=== PATIENT | female | born 1940 | race African-American/Black ===

== ENCOUNTER → 2016-08-16 | Outpatient (CLI) | payer BC ==
--- NOTE | 2016-08-16 13:19 | KCIC ---
Complete cervical spine Indication: Reason: RIGHT ARM WEAKNESS AND ACHING X 2 WEEKS, NO KNOWN INJURY / Spl. Instructions: / History: Reason For Study Findings: There is straightening of the cervical lordosis. Vertebral body heights are maintained. There is disc height loss greatest at C5-6 and C6-7. No perching of the facets. There is narrowing of the right foramina at C6-C7 from uncovertebral hypertrophy. The odontoid is intact. Impression: - Degenerative disc disease greatest at C5-6 and C6-7. There is right foraminal narrowing at C6-7. Correlate for C7 radiculopathy symptoms. Electronically signed by: Saul Duque (August 16, 2016 13:18:28)
== END | disposition home or self-care (01) ==
LOC: KCIC 12:54
PROVIDERS: ATTEND Family Medicine
DX: M50.30 Other cervical disc degeneration, unspecified cervical region (principal)
CPT/HCPCS: 72050

== ENCOUNTER → 2016-08-30 | Outpatient (CLI) | payer BC ==
--- NOTE | 2016-08-30 11:38 | KCIC ---
Three views right shoulder Indication: Right shoulder pain Findings: No fracture is identified. The acromioclavicular and glenohumeral joints are maintained. There is no evidence for dislocation. Visualized right lung apex is clear. Soft tissues are within normal limits. Impression: Negative for fracture or dislocation. Electronically signed by: Saul Duque MD (08/30/2016 11:35 AM)
== END | disposition home or self-care (01) ==
LOC: KCIC 11:07
PROVIDERS: ATTEND Family Medicine
DX: M25.511 Pain in right shoulder (principal)
CPT/HCPCS: 73030

== ENCOUNTER → 2017-09-30 | Outpatient (CLI) | payer BC ==
[2017-09-30] MEDS: IOHEXOL 300 MG/ML 100ML VIAL. IV (09:07)
== END | disposition home or self-care (01) ==
LOC: CT 08:39
DX: R91.8 Other nonspecific abnormal finding of lung field (principal); R59.0 Localized enlarged lymph nodes
CPT/HCPCS: 71260; Q9967

== ENCOUNTER 2017-10-24 08:09 | Outpatient (CLI) | payer BC ==
[2017-10-24 08:27] LABS: ADD MAN DIFF? NO
[2017-10-24 08:33] LABS: BASO % 0 % (0-3); EOS # 0.1 x10^3/uL (0.0-0.7); EOS % 1 % (0-3); HEMATOCRIT 34.8 % (36.0-47.0); HEMOGLOBIN 11.5 g/dL (12.0-15.5); LYMPH # 1.6 x10^3/uL (1.0-4.8); LYMPH % 17 % (24-48); MEAN CORPUSCULAR HEMOGLOBIN 28 pg (25-35); MEAN CORPUSCULAR HGB CONC 33 g/dL (31-37); MEAN CORPUSCULAR VOLUME 85 fL (79-100); MONO # 0.9 x10^3/uL (0.0-1.1); MONO % 10 % (0-9); NEUT # 6.5 x10^3uL (1.8-7.7); NEUT % 72 % (31-73); PLATELET COUNT 495 x10^3/uL (140-400); RED CELL DISTRIBUTION WIDTH 16.1 % (11.5-14.5); WHITE BLOOD COUNT 9.1 x10^3/uL (4.0-11.0)
[2017-10-24 08:39] LABS: INR 1.1 (0.8-1.1); PARTIAL THROMBOPLASTIN TIME 32 SEC (24-38)
[2017-10-24] MEDS ORDERED: LIDOCAINE WITH 8.4% SOD BICARB 3 ML DISP.SYRIN. ×2 (09:18→09:54)
[2017-10-24] MEDS ORDERED: MIDAZOLAM HCL/PF 2 MG/2 ML VIAL. (09:25)
[2017-10-24] MEDS ORDERED: fentaNYL PF VIAL 100 MCG/2 ML VIAL (09:26)
[2017-10-24] MEDS: fentaNYL PF VIAL 100 MCG/2 ML VIAL IV (10:11)
[2017-10-24] MEDS: LIDOCAINE WITH 8.4% SOD BICARB 3 ML DISP.SYRIN. IJ (10:12)
[2017-10-24] MEDS: MIDAZOLAM HCL/PF 2 MG/2 ML VIAL. IV (10:12)
== END 2017-10-24 13:25 | disposition home or self-care (01) ==
LOC: INTRAD 08:09
DX: J84.10 Pulmonary fibrosis, unspecified (principal); J21.9 Acute bronchiolitis, unspecified; J98.4 Other disorders of lung; J69.1 Pneumonitis due to inhalation of oils and essences; I10 Essential (primary) hypertension; Z87.440 Personal history of urinary (tract) infections; Z90.710 Acquired absence of both cervix and uterus; M19.90 Unspecified osteoarthritis, unspecified site; Z79.01 Long term (current) use of anticoagulants
CPT/HCPCS: 32405; 36415; 71045; 77012; 85025; 85610; 85730; 88305; 99152; 99153; J2250; J3010

== ENCOUNTER → 2017-11-01 | Outpatient (CLI) | payer BC | END | disposition home or self-care (01) | LOC: RAD 08:54 | DX: J43.8 Other emphysema (principal); I10 Essential (primary) hypertension; R91.8 Other nonspecific abnormal finding of lung field; Z79.01 Long term (current) use of anticoagulants; Z87.440 Personal history of urinary (tract) infections; Z90.710 Acquired absence of both cervix and uterus | CPT/HCPCS: 71046 ==

== ENCOUNTER → 2017-11-05 | Day surgery (SDC) | payer BC ==
[~2017-11-05] MED LIST: 0.9 % SODIUM CHLORIDE 10 ML DISP.SYRIN. IV; EPINEPHrine 1 MG/ML VIAL; LIDOCAINE 1% Multi-Dose 50 ML VIAL.; LIDOCAINE 1% PF 2 ML VIAL. ID; LIDOCAINE 2% VISCOUS 100 ML BOTTLE.; LIDOCAINE 2% VISCOUS 15 ML SOLUTION. SWSW; LIDOCAINE 4% NEB; LIDOCAINE 4% TOPICAL 50 ML SOLUTION.; MORPHINE SULFATE 2 MG/ML DISP.SYRIN. IV; ONDANSETRON PF 4 MG/2 ML VIAL. IV; PROCHLORPERAZINE 10 MG/2 ML VIAL. IV; PROPOFOL 40 ML IV; fentaNYL PF VIAL 100 MCG/2 ML VIAL IV
[2017-11-05] MEDS: IV RINGERS,LACTATED 1000ML 1,000 ML IV (12:57)
[2017-11-05] MEDS: ALBUTEROL SULFATE 2.5 MG/3 ML NEBU. NEB ×2 (13:07→14:42)
== END | disposition home or self-care (01) ==
LOC: SURG 12:09
DX: R91.8 Other nonspecific abnormal finding of lung field (principal); R59.0 Localized enlarged lymph nodes; I10 Essential (primary) hypertension; E78.5 Hyperlipidemia, unspecified; E11.9 Type 2 diabetes mellitus without complications; M19.90 Unspecified osteoarthritis, unspecified site; M81.0 Age-related osteoporosis without current pathological fracture; J43.9 Emphysema, unspecified; Z87.891 Personal history of nicotine dependence; Z98.41 Cataract extraction status, right eye; Z96.1 Presence of intraocular lens; E78.00 Pure hypercholesterolemia, unspecified; Z87.01 Personal history of pneumonia (recurrent); Z86.010 Personal history of colon polyps; Z90.710 Acquired absence of both cervix and uterus; Z87.440 Personal history of urinary (tract) infections; Z98.890 Other specified postprocedural states; Z79.899 Other long term (current) drug therapy; Z79.01 Long term (current) use of anticoagulants; Z79.84 Long term (current) use of oral hypoglycemic drugs
CPT/HCPCS: 31622; 31629; 87070; 87205; 88104; 88112; 88173; 94640; J0171; J2704; J7613

== ENCOUNTER → 2017-11-21 | Outpatient (CLI) | payer BC ==
[2017-11-05 14:38] VITALS: BP 138/65
[~2017-11-21] MED LIST changes: -0.9 % SODIUM CHLORIDE 10 ML DISP.SYRIN. IV; +ALEN70TA5 PO; +AMLO10TA2 PO; -EPINEPHrine 1 MG/ML VIAL; +GADOBUTROL 7.5 MMOL/7.5 ML VIAL IV ONE; -LIDOCAINE 1% Multi-Dose 50 ML VIAL.; -LIDOCAINE 1% PF 2 ML VIAL. ID; -LIDOCAINE 2% VISCOUS 100 ML BOTTLE.; -LIDOCAINE 2% VISCOUS 15 ML SOLUTION. SWSW; -LIDOCAINE 4% NEB; -LIDOCAINE 4% TOPICAL 50 ML SOLUTION.; +LISI-130 PO; +LOVA20TA2 PO; -MORPHINE SULFATE 2 MG/ML DISP.SYRIN. IV; -ONDANSETRON PF 4 MG/2 ML VIAL. IV; -PROCHLORPERAZINE 10 MG/2 ML VIAL. IV; -PROPOFOL 40 ML IV; -fentaNYL PF VIAL 100 MCG/2 ML VIAL IV
[2017-11-21 14:14] LABS: ALBUMIN/GLOBULIN RATIO 0.4 (1.0-1.7); CALCIUM 10.7 mg/dL (8.5-10.1); GFR 64.7; POTASSIUM 4.5 mmol/L (3.5-5.1); TOTAL BILIRUBIN 0.3 mg/dL (0.2-1.0); TOTAL PROTEIN 7.6 g/dL (6.4-8.2)
--- NOTE | 2017-11-21 16:37 | RAD ---
MRI of the Brain without and with Contrast 11/21/2017 Clinical History: Newly diagnosed lung cancer. Technique: Unenhanced T1-weighted sagittal and axial and FLAIR, T2-weighted, gradient echo and diffusion-weighted axial images of the brain were obtained. After the intravenous administration of 5 cc of Gadavist, enhanced T1-weighted axial, sagittal and coronal images of the brain were obtained. Findings: No previous imaging studies are available for comparison. There is generalized parenchymal atrophy. Patchy and small scattered areas of abnormally increased signal intensity are seen within the periventricular and subcortical white matter of both cerebral hemispheres on the FLAIR and T2-weighted images consistent with areas of mild small vessel ischemic disease. No acute parenchymal abnormality is seen. No abnormal area of contrast enhancement is noted. No extra-axial fluid collection is seen. There is no MRI evidence of acute ischemia/infarction. Mild mucosal thickening is seen scattered throughout the paranasal sinuses. There are minimal bilateral mastoid effusions. Normal flow voids are seen within the major vascular structures surrounding the brain parenchyma. Impression: No acute parenchymal abnormality is seen. There is no MRI evidence of metastatic disease involving the brain parenchyma. Electronically signed by: Adolfo Callahan MD (11/21/2017 4:33 PM) [id number]
--- NOTE | 2017-11-21 16:48 | RAD ---
CLINICAL HISTORY: Lung cancer INDICATION: Initial evaluation. COMPARISON: CT 10/24/2017, PET/CT 10/20/2015 TECHNIQUE: Radiopharmaceutical Dose: 30.5 mCi F-18 FDG intravenous Blood glucose at time of study: 133 FDG uptake time = 60 minutes. Images were obtained from the mid head to the mid thighs. A low dose, noncontrast CT study was performed for the purpose of attenuation correction and anatomic localization. FINDINGS: Head and Neck: Physiologic uptake within the head and neck. Chest: The right lower lobe mass measures approximately 9 x 5 cm. This has a SUV max of 14.3. This extends into the right hilum and right subcarinal region. The right hilum has an SUV max of 9.4 and the subcarinal region has an SUV max of 12.3. Additional pretracheal lymphadenopathy is seen with an SUV max of 5.1. In addition there is extensive bilateral emphysematous change most prominent in the right upper lobe with associated honeycombing. This right upper lobe region of honeycombing has an SUV max of 4.1, with associated patchy airspace opacities, possibly secondary infection. Pleural-based nodularity abutting the middle lobe laterally has an SUV max of 3.6 and measures 24 mm. The right paraspinal muscles has an SUV max of 3.8, extending along the length of the thoracic region. Abdomen and Pelvis: No abnormal abdominal or pelvis at about activity. Physiologic GI and uptake is seen. Skeletal: Apparent diffuse uptake within the right ribs may be reactive. No discrete associated bony lesion is seen. IMPRESSION: 1. Right lung base mass with increased metabolic activity consistent with known malignancy. This extends into the mediastinum and right khadijah, also with associated increased metabolic activity consistent with paige involvement. 2. Additional nodular focus with low-level uptake along the middle lobe is nodular although may be related to atelectasis, consolidative process and malignancy is not excluded. 3. Nonspecific uptake within the right paraspinal muscles, possibly positional. 4. Right upper lung airspace opacities with mild, low-level uptake, nonspecific, possibly secondary infection 5. Right pleural effusion with low-level uptake, possibly malignant effusion.
== END | disposition home or self-care (01) ==
LOC: PETSC 11:43
PROVIDERS: ATTEND Internal Medicine Hematology & Oncology
DX: C34.81 Malignant neoplasm of overlapping sites of right bronchus and lung (principal); J90 Pleural effusion, not elsewhere classified
CPT/HCPCS: 36415; 70553; 78815; 80053; A9552; A9585

== ENCOUNTER 2017-12-25 10:08 | Outpatient (CLI) | payer BC ==
[~2017-12-25] VITALS: Ht 160 cm; Wt 47.6 kg
[~2017-12-25 10:08] MED LIST changes: -AMLO10TA2 PO; +AMLO10TA6 PO; -GADOBUTROL 7.5 MMOL/7.5 ML VIAL IV ONE; +LOVA10TA PO; +ONDA8TAB9 PO; +[UNRECOGNIZED DRUG - CODE] PO
[2017-12-25 10:49] LABS: BASO % 0 % (0-3); EOS % 1 % (0-3); HEMATOCRIT 36.1 % (36.0-47.0); LYMPH # 0.5 x10^3/uL (1.0-4.8); LYMPH % 22 % (24-48); MEAN CORPUSCULAR HEMOGLOBIN 29 pg (25-35); MEAN CORPUSCULAR HGB CONC 33 g/dL (31-37); MEAN CORPUSCULAR VOLUME 86 fL (79-100); MONO # 0.2 x10^3/uL (0.0-1.1); MONO % 9 % (0-9); NEUT # 1.5 x10^3uL (1.8-7.7); NEUT % 68 % (31-73); PLATELET COUNT 188 x10^3/uL (140-400); RED CELL DISTRIBUTION WIDTH 19.7 % (11.5-14.5); WHITE BLOOD COUNT 2.3 x10^3/uL (4.0-11.0)
[2017-12-25 10:52] LABS: CALCIUM 9.4 mg/dL (8.5-10.1); CREATININE 0.7 mg/dL (0.6-1.0); GFR 97.7; POTASSIUM 4.1 mmol/L (3.5-5.1)
[2017-12-25 10:55] VITALS: BP 154/82
[2017-12-25 10:58] LABS: PROTHROMBIN TIME PATIENT 13.9 SEC (11.7-14.0)
[2017-12-25] MEDS ORDERED: LIDOCAINE 1%/EPI 1:100,000 20 ML VIAL. ONE (11:08)
[2017-12-25] MEDS ORDERED: HEPARIN PF 500 UNIT/5 ML DISP.SYRIN. IV ONE ×2 (11:09→11:27)
[2017-12-25] MEDS ORDERED: fentaNYL PF VIAL 100 MCG/2 ML VIAL ONE (11:15)
[2017-12-25] MEDS ORDERED: MIDAZOLAM HCL/PF 2 MG/2 ML VIAL. ONE (11:15)
[2017-12-25] MEDS ORDERED: HEPARIN for IV BOLUS 10,000 UNIT/10 ML VIAL. INT CAT ONE (11:30)
[2017-12-25] MEDS ORDERED: MIDAZOLAM HCL/PF 2 MG/2 ML VIAL. IV ONE (11:30)
[2017-12-25] MEDS ORDERED: fentaNYL PF VIAL 100 MCG/2 ML VIAL IV ONE (11:30)
[2017-12-25] MEDS ORDERED: LIDOCAINE 1%/EPI 1:100,000 20 ML VIAL. IJ ONE (11:30)
--- NOTE | 2017-12-25 12:03 | PDOC ---
BRIEF OPERATIVE NOTE Pre-Op Diagnosis Lung cancer Post-Op Diagnosis same Procedure Performed Port Surgeon Gladis Anesthesia Type: Conscious Sedation Findings RIJ Port Complications No immediate LIDIA SAVAGE MD Dec 25, 2017 12:03
--- NOTE | 2017-12-25 12:03 | PDOC ---
MODERATE SEDATION ASSESSMENT RISKS/ALTERNATIVES Risks/Alternatives Risks and alternatives of this type of sedation and procedure discussed with: RISK/ALTERNATIVES: Patient H & P ON CHART H & P H & P on chart and reviewed for co-morbid conditions and appropriate labs. H&P ON CHART: Yes STATUS PREG STATUS ASSESSED: Yes MEDS/ALLERGIES REVIEWED Meds/Allergies Reviewed Medications and Allergies including time and route of recently administered narcotics and sedatives. MEDS/ALLERGIES REVIEWED: Yes ASA RATING ASA RATING: II AIRWAY ASSESSMENT Airway Assessment Airway patency, oral function limitations, presence of caps, crowns, dentures, partials, and ability to extend neck assessed. AIRWAY ASSESSMENT: Yes MALLAMPATI SCORE MALLAMPATI SCORE: II PRE-SEDATION ASSESSMENT PRE-SEDATION ASSESSMENT: Yes LIDIA SAVAGE MD Dec 25, 2017 12:03
--- NOTE | 2017-12-25 12:04 | PDOC1 ---
History and Physical Date of Procedure Date of Admission History of Present Illness Reason for Visit Adult female with lung cancer Past Medical History Past Medical History See nursing pre-op assessment Current Medications Current Medications Current Medications Cefazolin Sodium 50 ml @ 100 mls/hr 1X ONCE IV Last administered on at 10:30; Start 12/25/17 at 10:30; Stop 12/25/17 at 10:59; Status DC Lidocaine/ Epinephrine (LIDOCAINE 1%-EPI 1:100,000 Multi-Dose) 20 ml STK-MED ONCE .ROUTE ; Start 12/25/17 at 11:08; Stop 12/25/17 at 11:09; Status DC Heparin Sodium (Porcine) (Hep Lock Adult) 500 unit STK-MED ONCE IV ; Start 12/25 at 11:09; Stop 12/25/17 at 11:10; Status DC Midazolam HCl (Versed) 2 mg STK-MED ONCE .ROUTE ; Start 12/25/17 at 11:15; Stop 12/25/17 at 11:16; Status DC Fentanyl Citrate (Fentanyl 2ml Vial) 100 mcg STK-MED ONCE .ROUTE ; Start at 11:15; Stop 12/25/17 at 11:16; Status DC Midazolam HCl (Versed) 2 mg 1X ONCE IV ; Start 12/25/17 at 11:30; Stop at 11:31; Status DC Fentanyl Citrate (Fentanyl 2ml Vial) 100 mcg 1X ONCE IV ; Start 12/25/17 at 11: 30; Stop 12/25/17 at 11:31; Status DC Lidocaine/ Epinephrine (LIDOCAINE 1%-EPI 1:100,000 Multi-Dose) 20 ml 1X ONCE IJ ; Start 12/25/17 at 11:30; Stop 12/25/17 at 11:31; Status DC Cefazolin Sodium 50 ml @ 100 mls/hr 1X ONCE IV ; Start 12/25/17 at 11:30; Stop 12/25/17 at 11:59; Status DC Heparin Sodium (Porcine) (Heparin Sodium) 2,600 unit 1X ONCE INT CAT ; Start at 11:30; Stop 12/25/17 at 11:31; Status DC Heparin Sodium (Porcine) (Hep Lock Adult) 500 unit STK-MED ONCE IV ; Start 12/25 at 11:27; Stop 12/25/17 at 11:28; Status DC Active Scripts Active Reported Lovastatin 10 Mg Tablet 10 Mg PO HS Alendronate Sodium 70 Mg Tablet 1 Tab PO WEEKLY Allergies Allergies: Coded Allergies: No Known Drug Allergies (Unverified , 12/25/17) Physical Exam Vital Signs Vital Signs Date Time Temp Pulse Resp B/P (MAP) Pulse Ox O2 Delivery O2 Flow Rate FiO2 12/25/17 10:55 97.7 106 22 154/82 (106) 98 Room Air 97.7 Other see nursing pre-op assessment Assessment Assessment Lung Cancer Plan Plan LIDIA Tripp MD Dec 25, 2017 12:04
[2017-12-25 12:09] VITALS: BP 123/65
[2017-12-25 12:15] VITALS: BP 123/78
--- NOTE | 2017-12-25 12:17 | RAD ---
Procedure: Port-A-Cath placement Clinical Indication: 77-year-old female with lung cancer Sedation: Conscious sedation was administered with a total intraprocedural [id number] time of 21 minutes. The patient was monitored by a qualified independent observer throughout the time of sedation. Please refer to the medical record for exact doses of medications utilized to achieve moderate sedation. Antibiotics: Antibiotic was administered intravenously within 1 hour of the procedure start time. Exposure: Fluoro Time: 0.1 minutes Images: 1 Contrast: None Sterility: All elements of maximal sterile barrier technique including the use of a cap, mask, sterile gown, sterile gloves, large sterile sheet, appropriate hand hygiene, and 2% chlorhexidine for cutaneous antisepsis (or acceptable alternative antiseptic per current guidelines) were followed for this procedure. Consent: The procedure was explained in its entirety to the patient or the patients designated customer service representative teacher by a member of the treatment team, including a discussion of the risks, benefits and commonly accepted alternatives to the procedure, as well as the expected consequences of no therapy whatsoever. Discussion of the risks included, but was not limited to, those that are most frequent and those that are rare but possibly severe or life-threatening, as well as the possibility of unforeseen complications. Technique and Findings: Ultrasound interrogation of the right neck revealed patency and compressibility of the internal jugular vein. A hardcopy ultrasound image was recorded as a 21-gauge micropuncture needle was used to gain access to this vessel. The needle was exchanged over a wire for a peel-away sheath. The skin over the ipsilateral anterior chest wall was then copiously anesthetized with 1% lidocaine plus epinephrine, and a small dermatotomy was made. Blunt dissection techniques were used to create a pocket for the port. The port was then tunneled subcutaneously towards the neck dermatotomy then deployed under fluoroscopic guidance through the peel-away sheath such that the distal tip resided in the proximal right atrium. The port was accessed and found to flush and aspirate with ease. The port was packed with heparin. The pocket was copiously irrigated with sterile saline then closed with deep interrupted and running subcuticular 4-0 Vicryl suture. Dermabond was used to close the neck dermatotomy. Complications: No immediate Impression: 1. Right IJ Port-A-Cath placement as described
[2017-12-25 12:30] VITALS: BP 140/72
[2017-12-25 12:45] VITALS: BP 140/79
[2017-12-25 13:00] VITALS: BP 151/74
== END 2017-12-25 13:36 | disposition home or self-care (01) ==
LOC: INTRAD 10:08
PROVIDERS: ATTEND Internal Medicine Hematology & Oncology
DX: C34.31 Malignant neoplasm of lower lobe, right bronchus or lung (principal); Z79.01 Long term (current) use of anticoagulants; Z79.899 Other long term (current) drug therapy
CPT/HCPCS: 36415; 36561; 76937; 77001; 80048; 85025; 85610; 99152; C1769; C1788; C1892; J0690; J1644; J2250; J3010; J3490; C1751